=== PATIENT | female | born 1960 | race Caucasian/White ===

== ENCOUNTER 2021-01-21 10:05 | Inpatient (IN) | payer OTHER ==
[~2021-01-21] VITALS: Ht 165.1 cm; Wt 84.5 kg
[2021-01-21 10:28] LABS: BILIRUBIN NEGATIVE (NEGATIVE); KETONE MODERATE mg/dL (NEGATIVE); NITRITE NEGATIVE (NEGATIVE); UROBILINOGEN NORMAL mg/dL (< 2)
[2021-01-21 10:36] LABS: BASOPHILS 1.2 % (0-2); EOSINOPHILS 0.1 % (0-7); HEMATOCRIT 37.7 % (36.0-48.0); HEMOGLOBIN 12.6 g/dL (12-16); LYMPHOCYTES 11.9 % (15-50); MCH 31.3 pg (26.0-34.0); MCHC 33.5 g/dL (31.0-37.0); MCV 93.5 fL (80.0-100.0); MEAN PLATELET VOLUME 7.9 fL (7.4-10.4); MONOCYTES 8.5 % (2-11); NEUTROPHILS 78.3 % (40-80); PLATELET COUNT 287 10x3/uL (130-400); RBC 4.04 10x6/uL (4.00-5.40); WBC 5.3 10x3/uL (4.8-10.8)
[2021-01-21 10:47] LABS: UDS - AMPHET NEGATIVE QUAL (NEGATIVE); UDS - BARB NEGATIVE QUAL (NEGATIVE); UDS - BENZO NEGATIVE QUAL (NEGATIVE); UDS - COCAINE NEGATIVE QUAL (NEGATIVE); UDS - OPIATE NEGATIVE QUAL (NEGATIVE); UDS - PCP NEGATIVE QUAL (NEGATIVE); UDS - THC NEGATIVE QUAL (NEGATIVE)
[2021-01-21 10:48] LABS: CALC OSMOLALITY 293 mosm/kg (275-300); CALCIUM 8.8 mg/dL (8.5-10.1); CARBON DIOXIDE 18.4 mmol/L (21.0-32.0); CHLORIDE - SERUM 108 mmol/L (98-107); CREATININE - SERUM 0.6 mg/dL (0.6-1.3); GLUCOSE 143 mg/dL (74-106); POTASSIUM - SERUM 3.6 mmol/L (3.5-5.1); SODIUM 148 mmol/L (136-145); UREA NITROGEN 8 mg/dL (7-18); eGFR NON AFRICAN AMERICAN > 90 mL/min (90-120)
[2021-01-21 10:59] LABS: ALBUMIN 3.6 g/dL (3.4-5.0); ALKALINE PHOSPHATASE 90 U/L (30-120); ALT (SGPT) 28 U/L (10-68); BILIRUBIN - TOTAL 0.34 mg/dL (0.2-1.3); MAGNESIUM - SERUM 1.8 mg/dL (1.8-2.4); PROTEIN - SERUM 6.9 g/dL (6.4-8.2)
[2021-01-21 12:45] LABS: APTT 28.6 SECONDS (22.8-39.4); INR 1.31 (0.85-1.17); PROTIME 15.1 SECONDS (11.6-15.0)
--- NOTE | 2021-01-21 13:50 | NUR ---
1351 ARRIVED VIA STRETCHER FROM ER
[2021-01-21] MEDS ORDERED: BUSPAR 15 MG TA15 MG PO (14:15)
--- NOTE | 2021-01-21 14:15 | NUR ---
PATIENT TO ROOM 2236 FROM ER VIA STRETCHER.PATIENT HAS DIFFICULTY FOCUSING AND ANSWERING QUESTIONS. VERY ANXIOUS AND EASILY DISTRACTED. MEDS LISTED FROM PHARMACY HISTORY AND CONFIRMATION WITH PATIIENT.MULTIPLE SCRATCHES AND BRUISES ON BODY FROM HEAD TO TOE. ENTIRE INNER BUTTOCKS RED.RIGHT ARM WRAPPED AND INIMMOBILIZER BRACE. PATIENT STATES HER ELBOW WAS REMOVED THREE WEEKS AGO IN [place].FALL PREVENTION IN PLACE WITH SUKHWINDER MAT,BAND AND SOCKS.IS INSTRUCTED.PATIENT DECLINES SCD'S,EDUCATION PROVIDED.
[2021-01-21] MEDS ORDERED: LAMICTAL25 MG PO (14:16)
[2021-01-21] MEDS ORDERED: MAG-OXIDE400 MG PO (14:18)
[2021-01-21] MEDS ORDERED: KLONOPIN0.5 MG PO (14:20)
[2021-01-21] MEDS ORDERED: TOPROL XL50 MG PO (14:21)
[2021-01-21] MEDS ORDERED: K-DUR20 MEQ PO (14:23)
[2021-01-21] MEDS ORDERED: SINEQUAN25 MG PO (14:24)
[2021-01-21] MEDS ORDERED: TRAZODONE HCL50 MG PO (14:24)
[2021-01-21] MEDS ORDERED: OXYCODONE HCL10 MG PO (14:25)
[2021-01-21] MEDS ORDERED: ARMOUR THYROID90 MG PO (14:25)
[2021-01-21] MEDS ORDERED: ARMOUR THYROID120 MG PO (14:28)
[2021-01-21] MEDS ORDERED: LIPITOR20 MG PO (14:30)
[2021-01-21] MEDS ORDERED: FUROSEMIDE40 MG PO (14:30)
--- NOTE | 2021-01-21 14:31 | NUR ---
1590 DR STRATTON AT BEDSIDE REMOVING RIGHT ARM DRESSING TO ASSESS INCISION AND REDRESSED WITH KERLEX AND ALLIE WRAP
[2021-01-21] MEDS ORDERED: HYDROCODON-ACE1 EA10 (14:32)
[2021-01-21] MEDS ORDERED: MS CONTIN30 MG PO (14:33)
[2021-01-21] MEDS ORDERED: DICLOFENAC SODI50 MG PO (14:35)
[2021-01-21] MEDS ORDERED: PROTONIX40 MG PO (14:36)
[2021-01-21] MEDS ORDERED: ULTRAM50 MG PO (14:36)
[2021-01-21 14:52] VITALS: BP 132/80; Ht 165.1 cm; Wt 84.5 kg
[2021-01-21 17:44] VITALS: BP 152/90
--- NOTE | 2021-01-21 17:44 | NUR ---
1550 PT GETTING UP REPEATEDLY WITHOUT USING CALL LIGHT REINFO;RCED USE OF SAFTTY PRECAUTIONS SUKHWINDER MAT REMAINS ON BED
--- NOTE | 2021-01-21 17:46 | NUR ---
8762 PT DAUGHTER BROUGHT HER PHONE TO HER PT CURSING AND YELLING AT FAMILY HER FAMILY IS GOING BACK TO [place] AND LEAVING HER HERE PT UP TO BEDSIDE COMMODE FREQUENTLY WITH ROMAINE
[2021-01-21 20:00] VITALS: BP 131/73
--- NOTE | 2021-01-21 20:30 | NUR ---
ATTEMPTED TO SITE IV X3 WITHOUT SUCCESS. WILL ASSIGN ANOTHER NURSE TO TRY.
--- NOTE | 2021-01-21 21:30 | NUR ---
IV ATTEMPTS X 3 PER TWO OTHER NURSES WITHOUT SUCESS.
--- NOTE | 2021-01-21 22:48 | NUR ---
IV SITED TO LFA WITH 20G PER ICU NURSE X 1 ATTEMPT. TOLERATED WELL. IV RESTARTED PER ORDERS.
[2021-01-22] VITALS: BP 109/64
--- NOTE | 2021-01-22 02:28 | NUR ---
I have reviewed this patient and I concur with the Shift Assessment completed by the Licensed Practical Nurse today this shift.
[2021-01-22 06:22] LABS: MCH 30.7 pg (26.0-34.0); MCHC 33.6 g/dL (31.0-37.0); MEAN PLATELET VOLUME 7.4 fL (7.4-10.4)
[2021-01-22 06:42] LABS: HEMATOCRIT 28.8 % (36.0-48.0); HEMOGLOBIN 9.7 g/dL (12-16); MCV 91.5 fL (80.0-100.0); PLATELET COUNT 177 10x3/uL (130-400); RBC 3.15 10x6/uL (4.00-5.40)
[2021-01-22 07:14] LABS: ALBUMIN 3.1 g/dL (3.4-5.0); ALKALINE PHOSPHATASE 67 U/L (30-120); ALT (SGPT) 25 U/L (10-68); BILIRUBIN - TOTAL 0.77 mg/dL (0.2-1.3); CALC OSMOLALITY 287 mosm/kg (275-300); CALCIUM 8.6 mg/dL (8.5-10.1); CHLORIDE - SERUM 111 mmol/L (98-107); CREATININE - SERUM 0.6 mg/dL (0.6-1.3); GLUCOSE 113 mg/dL (74-106); PROTEIN - SERUM 5.6 g/dL (6.4-8.2); SODIUM 145 mmol/L (136-145); UREA NITROGEN 8 mg/dL (7-18); eGFR NON AFRICAN AMERICAN > 90 mL/min (90-120)
[2021-01-22 07:17] LABS: CARBON DIOXIDE 26.7 mmol/L (21.0-32.0); MAGNESIUM - SERUM 2.5 mg/dL (1.8-2.4); POTASSIUM - SERUM 4.3 mmol/L (3.5-5.1)
[2021-01-22 08:50] VITALS: BP 143/74
[2021-01-22 09:05] LABS: EOSINOPHILS 1 % (0-7); LYMPHOCYTES 37 % (15-50); MONOCYTES 18 % (2-11); NEUTROPHILS 44 % (40-80); PLATELET ESTIMATE NORMAL
[2021-01-22 09:06] LABS: ANISOCYTOSIS OCC
--- NOTE | 2021-01-22 09:41 | NUR ---
0700 BEDSIDE REPORT RECEIVED ASSESSMENT COMPLETE IN BED WITH MILD ANXIETY NOTED FOLLOWS INSTRUCTIONS
--- NOTE | 2021-01-22 09:42 | NUR ---
0930 MILD HAND TREMORS NOTED PATIENT STATED SHE HAS NEVER BEEN THROUGH [facility]Ts BEFORE ALSO STATED SHE IS FEELING 'FUNNY' ATIVAN 1MG PO GIVEN PER DT PROTOCOL
[2021-01-22 13:31] VITALS: BP 123/60
[2021-01-22 17:08] VITALS: BP 109/53
--- NOTE | 2021-01-22 19:00 | NUR ---
BEDSIDE REPORT RECEIVED AND CARE OF PT ASSUMED. ARRIVED IN ROOM, AND FOUND THAT PT HAD PULLED IV OUT, WITH CATHETER TIP INTACT. EMPTIED BSC. COLLECTED DIRTY LINENS THAT WERE SCATTERED ON THE FLOOR. TOOK PT'S DINNER TRAY OUT. CALLED [facility] TO REQUEST ICU NURSE TO COME SITE IV, PER PT REQUEST.
[2021-01-22 20:00] VITALS: BP 123/76
--- NOTE | 2021-01-22 20:14 | NUR ---
IV RE-SITED BY ICU NURSE...22 GUAGE TO LEFT THUMB. RE-STARTED IV FLUIDS AT [facility].
--- NOTE | 2021-01-22 20:18 | NUR ---
HS MEDICATIONS GIVEN TO INCLUDE ATIVAN AND IMMODIUM PER PT REQUEST.
--- NOTE | 2021-01-22 20:30 | NUR ---
CHANGED ALL LINENS AND GOWN. POSITIONED PT FOR COMFORT WITH RIGHT ARM ELEVATED ON PILLOWS.
[2021-01-23] VITALS: BP 99/52
[2021-01-23 04:00] VITALS: BP 109/65
[2021-01-23 06:34] LABS: BASOPHILS 1.5 % (0-2); EOSINOPHILS 1.5 % (0-7); HEMOGLOBIN 9.9 g/dL (12-16); LYMPHOCYTES 41.1 % (15-50); MCH 31.3 pg (26.0-34.0); MCHC 34.2 g/dL (31.0-37.0); MCV 91.5 fL (80.0-100.0); MEAN PLATELET VOLUME 8.2 fL (7.4-10.4); MONOCYTES 12.5 % (2-11); NEUTROPHILS 43.4 % (40-80); PLATELET COUNT 167 10x3/uL (130-400); RBC 3.16 10x6/uL (4.00-5.40); RDW 15.7 % (11.5-14.5)
[2021-01-23 06:44] LABS: ALBUMIN 3.2 g/dL (3.4-5.0); ALKALINE PHOSPHATASE 73 U/L (30-120); ALT (SGPT) 25 U/L (10-68); BILIRUBIN - TOTAL 0.57 mg/dL (0.2-1.3); CALC OSMOLALITY 278 mosm/kg (275-300); CALCIUM 8.7 mg/dL (8.5-10.1); CARBON DIOXIDE 23.6 mmol/L (21.0-32.0); CHLORIDE - SERUM 109 mmol/L (98-107); CREATININE - SERUM 0.7 mg/dL (0.6-1.3); GLUCOSE 100 mg/dL (74-106); MAGNESIUM - SERUM 2.4 mg/dL (1.8-2.4); POTASSIUM - SERUM 4.2 mmol/L (3.5-5.1); PROTEIN - SERUM 6.2 g/dL (6.4-8.2); SODIUM 141 mmol/L (136-145); UREA NITROGEN 7 mg/dL (7-18); eGFR NON AFRICAN AMERICAN 90 mL/min (90-120)
[2021-01-23 10:49] VITALS: BP 128/74
[2021-01-23 12:00] LABS: INR 1.35 (0.85-1.17); PROTIME 15.4 SECONDS (11.6-15.0)
[2021-01-23 12:28] VITALS: BP 123/67
--- NOTE | 2021-01-23 13:05 | NUR ---
PATIENT IV OUT. PATIENT STATED IT WAS GETTING WET. IV COMPLETELY OUT. CATH TIP INTACT. STATED SHE DID NOT WANT ANY IV ANTIBIOTICS. STATED IF SHE NEEDED THEM SHE ONLY WANTED PO. NOTIFIED PHYSICIAN. CALL LIGHT WITHIN REACH. PATIENT GOING TO BE DISCHARGED.
[2021-01-23] MEDS ORDERED: MULTI-DAY VITAM1 TAB PO (13:58)
[2021-01-23] MEDS ORDERED: FOLIC ACID1 MG PO (13:58)
--- NOTE | 2021-01-23 14:46 | MORECARE ---
CASE MANAGEMENT DISCHARGE SUMMARY PATIENT: JOHANN SAUCEDO UNIT: [id number] ADM DATE: 01/21/21 AGE: 60 : 58 SEX: F ROOM/BED: D.2236 AUTHOR: MALOU,DOC PHYSICIAN: REFERRING PHYSICIAN: GERSON MAHARAJ MD DATE OF SERVICE: 01/23/21 Case Management Discharge Planning Summary COMMENTS ENTERED DATE: 01/23/21 14:38 CT COMMENT TYPE: Discharge Planning REVIEWER: Steph Simon CM PRINTED ALCOHOL EDUCATION MATERIAL FOR PATIENT. NURSE STATES PATIENT IS FROM [place] AND PLANS TO RETURN. CM TO FOLLOW AND ASSIST NEEDED. DCP REVIEW SUMMARY ANTICIPATED D/C DATE: EXPECTED LOS : CASE STATUS: DCP Initiated INITIAL REVIEW: 01/21/2021 INITIAL REVIEWER: Steph Simon FINAL DISCHARGE DISPOSITION: : FINAL REVIEWER: FINAL REVIEW DATE: DCP [employer] Questions & Answers QUESTION: ANSWER : PATIENT: JOHANN SAUCEDO ENCOUNTER: [id number] MEDICAL RECORD#: [id number] ADMISSION DATE: 01/21/2021 DISCHARGE DATE: ATTENDING MD: GERSON VO : AGE: 60 MARITAL STATUS: W DC PLAN ID: [id number] FACILITY: [facility] PRINTED ON: 01/23/21 14:46 CT All edits/amendments must be made on the electronic document DICTATION DATE: 01/23/211445 DOCUMENT CONTROL SPECIALIST: GISELA 01/23/211445 RPT#: [id number] DC DATE: STATUS: ADM IN [facility] [address] [place] [address] END OF REPORT
--- NOTE | 2021-01-23 14:55 | NUR ---
PATIENT RECIEVED DC INSTRUCTIONS. VERBALIZED UNDERSTANDING. NO QUESTIONS AT THIS TIME. EXPLAINED TO MAKE SURE SHE FOLLOWS UP WITH HER ORTHO DRAnson IN [place]. VERBALIZED UNDERSTANDING. WAITING FOR FAMILY FOR TRANSPORTATION. CALL LIGHT WITHIN REACH.
--- NOTE | 2021-01-23 15:30 | NUR ---
PATIENT ESCORTED OUT OF HOSPITAL VIA WC WITH PERSONAL BELONGINGS. ASSISTED BY HAND TRIMMER TO PRIVATE VEHICLE.
--- NOTE | 2021-01-23 16:41 | MORECARE ---
CASE MANAGEMENT DISCHARGE SUMMARY PATIENT: JOHANN SAUCEDO UNIT: [id number] ADM DATE: 01/21/21 AGE: 60 : 58 SEX: F ROOM/BED: D.2236 AUTHOR: MALOU,DOC PHYSICIAN: REFERRING PHYSICIAN: GERSON MAHARAJ MD DATE OF SERVICE: 01/23/21 Case Management Discharge Planning Summary COMMENTS ENTERED DATE: 01/23/21 14:38 CT COMMENT TYPE: Discharge Planning REVIEWER: Steph Simon CM PRINTED ALCOHOL EDUCATION MATERIAL FOR PATIENT. NURSE STATES PATIENT IS FROM [place] AND PLANS TO RETURN. CM TO FOLLOW AND ASSIST NEEDED. DCP REVIEW SUMMARY ANTICIPATED D/C DATE: EXPECTED LOS : CASE STATUS: DCP Initiated INITIAL REVIEW: 01/21/2021 INITIAL REVIEWER: Steph Simon FINAL DISCHARGE DISPOSITION: : FINAL REVIEWER: FINAL REVIEW DATE: DCP [employer] Questions & Answers QUESTION: ANSWER : PATIENT: JOHANN SAUCEDO ENCOUNTER: [id number] MEDICAL RECORD#: [id number] ADMISSION DATE: 01/21/2021 DISCHARGE DATE: 01/23/2021 ATTENDING MD: GERSON VO : AGE: 60 MARITAL STATUS: W DC PLAN ID: [id number] FACILITY: [facility] PRINTED ON: 01/23/21 16:41 CT All edits/amendments must be made on the electronic document DICTATION DATE: 01/23/211640 MARKET STALL VENDOR: GISELA 01/23/211640 RPT#: [id number] DC DATE:01/23/21 STATUS: DIS IN [facility] [address] [place] [address] END OF REPORT
== END 2021-01-23 16:27 | disposition home or self-care (01) | DRG 560 ==
LOC: D.ER 10:05 → D.MS 11:56
PROVIDERS: Family Medicine; ADMIT Family Medicine; ATTEND Family Medicine
DX: M97.41XA Periprosthetic fracture around internal prosthetic right elbow joint, initial encounter (principal); T81.31XA Disruption of external operation (surgical) wound, not elsewhere classified, initial encounter; T81.43XA Infection following a procedure, organ and space surgical site, initial encounter; F10.259 Alcohol dependence with alcohol-induced psychotic disorder, unspecified